=== PATIENT | female | born 1945 | race African-American/Black ===

== ENCOUNTER 2017-07-06 09:03 | Day surgery (SDC) | payer OTHER ==
[2017-07-02 10:33] VITALS: BMI 48.0
[2017-07-06] MEDS ORDERED: MIDAZOLAM HCL 2 MG/2 ML SINGLE DOSE VIAL ONE (12:07)
[2017-07-06] MEDS ORDERED: LEVOFLOXACIN 500 MG PREMIX BAG IVPB ONE (12:15)
[2017-07-06] MEDS ORDERED: ONDANSETRON 4 MG/2 ML VIAL IVPUSH PRN (12:48)
[2017-07-06] MEDS ORDERED: LACTATED RINGERS SOLUTION 1,000 ML IV SCH (13:00)
[2017-07-06 13:34] VITALS: TEMP 98.4
[2017-07-06 14:32] VITALS: BP 136/66; PULSE 74
--- NOTE | 2017-07-06 15:45 | OP ---
Operative Note - Note: Operative Date: 07/06/17 Pre-Operative Diagnosis: left renal stone Operation: left ESWL Findings: 10mm x 8mm left lower pole renal stone Post-Operative Diagnosis: Same as Pre-op Surgeon: Khris Rose Anesthesia: General
--- NOTE | 2017-07-07 09:24 | OP ---
DATE OF OPERATION: 07/06/2017 PREOPERATIVE DIAGNOSIS: Left renal stone. POSTOPERATIVE DIAGNOSIS: Left renal stone. PROCEDURE: Left extracorporeal shock wave lithotripsy. ANESTHESIA: Fractional. DESCRIPTION OF OPERATION: The patient was brought in the operating room, placed in supine position on the operating room table. Ultrasonography and fluoroscopy were performed. A 10 mm x 8 mm left lower pole renal stone was identified. At this point, fractional anesthesia and antibiotics were administered. Extracorporeal shock wave lithotripsy was then started; 3000 impulses at 20 joules of power were administered to the left lower pole stone. Excellent fragmentation was noted under real-time ultrasonography and fluoroscopy. No complications were noted. The patient tolerated the procedure very well. Abbe [id number]
== END 2017-07-06 14:48 | disposition home or self-care (01) ==
LOC: JASU-SURG 09:03
PROVIDERS: ATTEND Urology
PROC: 0TF4XZZ Fragmentation in Left Kidney Pelvis, External Approach (ICD-10-PCS; principal; 2017-07-06 11:15)
DX: N20.0 Calculus of kidney (principal)
CPT/HCPCS: 94760

== ENCOUNTER 2017-08-03 07:28 | Day surgery (SDC) | payer OTHER ==
[2017-07-30 11:46] VITALS: BMI 48.0
[2017-08-03] MEDS ORDERED: LEVOFLOXACIN 500 MG IVPB 100 ML IVPB ONE (07:36)
[2017-08-03] MEDS ORDERED: ONDANSETRON 4 MG/2 ML VIAL IVPUSH PRN (08:39)
[2017-08-03] MEDS ORDERED: PROMETHAZINE HCL 25 MG/1 ML VIAL IVPUSH PRN (08:39)
[2017-08-03] MEDS ORDERED: LACTATED RINGERS SOLUTION 1,000 ML IV SCH (08:45)
[2017-08-03] MEDS ORDERED: MIDAZOLAM HCL 2 MG/2 ML SINGLE DOSE VIAL ONE (08:49)
[2017-08-03] MEDS ORDERED: LEVOFLOXACIN 500 MG PREMIX BAG IVPB ONE (08:53)
[2017-08-03 10:20] VITALS: TEMP 98.7
[2017-08-03 11:58] VITALS: BP 119/63; PULSE 76
--- NOTE | 2017-08-03 13:17 | OP ---
Operative Note - Note: Operative Date: 08/03/17 Pre-Operative Diagnosis: right renal stone Operation: right eswl Findings: 7 mm Post-Operative Diagnosis: Same as Pre-op Surgeon: Khris Rose Anesthesia: General
--- NOTE | 2017-08-04 11:07 | OP ---
DATE OF OPERATION: 08/03/2017 PREOPERATIVE DIAGNOSIS: Right renal stone. POSTOPERATIVE DIAGNOSIS: Right renal stone. PROCEDURE: Right extracorporeal shock wave lithotripsy. ATTENDING: Lubna Acharya MD ANESTHESIA: General. DESCRIPTION OF OPERATION: The patient was brought in the operating room and placed on the operating room table in the supine position. Ultrasonography and fluoroscopy were performed. A 7-mm right mid-pole stone was identified. Anesthesia and preoperative antibiotics consisting of Levaquin were administered to the patient. At this point, 3000 impulses at 20 joules of power were administered to the stone under real-time ultrasonography and fluoroscopy. Excellent fragmentation was noted. There were no complications noted. The patient's disposition was to recovery room. LUBNA ACHARYA M.D. [id number]
== END 2017-08-03 11:58 | disposition home or self-care (01) ==
LOC: JASU-SURG 07:28
PROVIDERS: ATTEND Urology
PROC: 0TF3XZZ Fragmentation in Right Kidney Pelvis, External Approach (ICD-10-PCS; principal; 2017-08-03 08:45)
DX: N20.0 Calculus of kidney (principal)
CPT/HCPCS: 94760

== ENCOUNTER 2021-05-06 05:36 | Day surgery (SDC) | payer OTHER ==
[2021-05-03 08:58] VITALS: BMI 44.4
[2021-05-06] MEDS ORDERED: ACETAMINOPHEN 325 MG TABLET (FP) PO PRN (11:42)
[2021-05-06] MEDS ORDERED: ONDANSETRON 4 MG/2 ML VIAL IVPUSH PRN (11:42)
[2021-05-06] MEDS ORDERED: MIDAZOLAM HCL 2 MG/2 ML SINGLE DOSE VIAL ONE ×2 (11:45→12:10)
[2021-05-06] MEDS ORDERED: LACTATED RINGERS SOLUTION 1,000 ML IV SCH (11:45)
[2021-05-06 15:07] VITALS: TEMP 97.8
[2021-05-06 15:09] VITALS: BP 119/70; PULSE 89
== END 2021-05-06 14:15 | disposition home or self-care (01) ==
LOC: JASU-SURG 05:36
PROVIDERS: ATTEND Urology
PROC: 0TF4XZZ Fragmentation in Left Kidney Pelvis, External Approach (ICD-10-PCS; principal; 2021-05-06 11:00)
DX: N20.0 Calculus of kidney (principal)
CPT/HCPCS: 82962

== ENCOUNTER 2023-02-28 15:23 | Emergency (ER) | payer OTHER ==
[2023-02-28 15:34] VITALS: BP 142/54; PULSE 73; RESP 18; TEMP 99.2; BMI 42.4
[2023-02-28] MEDS ORDERED: ACETAMINOPHEN 1000 MG/100 ML BAG IVPB ONE (16:57)
[2023-02-28 17:19] LABS: BASO % 0.2 % (0-2.0); EOS % 1.6 % (0-4.5); HEMATOCRIT 29.3 % (32.4-45.2); HEMOGLOBIN 9.8 GM/dL (10.7-15.3); LYMPH % 46.8 % (8-40); MCHC 33.6 g/dl (32.0-36.0); MEAN CELL VOLUME 86.3 fl (80-96); MEAN PLT VOLUME 7.2 fl (7.5-11.1); MONO % 7.3 % (3.8-10.2); NEUT % 44.1 % (42.8-82.8); PLATELET COUNT 223 10^3/uL (134-434); RBC 3.39 M/mm3 (3.60-5.2); RDW 14.9 % (11.6-15.6); URINE APPEARANCE CLEAR; URINE BILIRUBIN NEGATIVE (NEGATIVE); URINE COLOR YELLOW; URINE GLUCOSE (UA) NEGATIVE (NEGATIVE); URINE KETONE TRACE (NEGATIVE); URINE LEUK ESTERASE NEGATIVE (NEGATIVE); URINE NITRITE NEGATIVE (NEGATIVE); URINE PROTEIN NEGATIVE (NEGATIVE); WHITE BLOOD COUNT 6.2 K/mm3 (4.0-10.0)
[2023-02-28 17:44] LABS: ALBUMIN 3.4 g/dl (3.4-5.0); BLOOD UREA NITROGEN 18.8 mg/dL (7-18)
[2023-02-28 17:47] LABS: CREATININE 1.1 mg/dL (0.55-1.3)
[2023-02-28 17:49] LABS: BILIRUBIN,TOTAL 0.3 mg/dL (0.2-1); TOT PROT 7.1 g/dl (6.4-8.2)
[2023-02-28] MEDS ORDERED: ACETAMINOPHEN INJECTION 100 ML IVPB ONE (18:15)
[2023-02-28] MEDS ORDERED: MECLIZINE HCL 25 MG TABLET (FP) PO ONE (18:38)
[2023-02-28] MEDS ORDERED: KETOROLAC TROMETHAMINE 15 MG/ML VIAL IVPUSH ONE (18:38)
[2023-02-28] MEDS ORDERED: MAGNESIUM SULF 50% (8.12 MEQ/2 ML-1 GM VIAL) IVPB ONE (18:42)
[2023-02-28] MEDS ORDERED: MECLIZINE HCL 25 MG TABLET (FP) ONE (18:53)
[2023-02-28] MEDS ORDERED: KETOROLAC TROMETHAMINE 15 MG/ML VIAL ONE (18:54)
[2023-02-28] MEDS ORDERED: MAGNESIUM 1GM/D5W - 1 GM/100 ML IVPB IVPB ONE (18:54)
== END 2023-02-28 22:28 | disposition home or self-care (01) ==
LOC: JER 15:23
PROC: 3E033NZ Introduction of Analgesics, Hypnotics, Sedatives into Peripheral Vein, Percutaneous Approach (ICD-10-PCS; principal; 2023-02-28)
PROC: 3E033GC Introduction of Other Therapeutic Substance into Peripheral Vein, Percutaneous Approach (ICD-10-PCS; 2023-02-28)
PROC: 3E033GC Introduction of Other Therapeutic Substance into Peripheral Vein, Percutaneous Approach (ICD-10-PCS; 2023-02-28)
DX: R10.12 Left upper quadrant pain (principal); R10.32 Left lower quadrant pain; R42 Dizziness and giddiness; R51.9 Headache, unspecified
CPT/HCPCS: 36415; 71250-TC; 74176-TC; 80053; 81003; 85025; 87086; 96374; 96375; 99284-25